=== PATIENT | female | born 1970 | race Caucasian/White ===

== ENCOUNTER 2018-10-20 02:03 | Emergency (ER) | payer BC ==
[~2018-10-20] VITALS: Ht 162.6 cm; Wt 59.1 kg
[2018-10-20 02:19] VITALS: BP 117/63; TEMP 98.3
[2018-10-20] MEDS ORDERED: ARMOUR THYROID30 MG PO (02:24)
[2018-10-20] MEDS ORDERED: PROMETRIUM100 MG PO (02:25)
[2018-10-20] MEDS ORDERED: ALDACTONE 25MG25 M1 PO (02:25)
[2018-10-20] MEDS ORDERED: ATARAX 25MG25 MG/TAB PO (02:41)
[2018-10-20] MEDS ORDERED: MEDROL 4MG DOSPA4 MG PO (02:41)
[2018-10-20 03:16] VITALS: PULSE 78
== END 2018-10-20 03:18 | disposition home or self-care (01) ==
LOC: COL.ER 02:03
DX: S80.862A Insect bite (nonvenomous), left lower leg, initial encounter (principal); S80.861A Insect bite (nonvenomous), right lower leg, initial encounter; W57.XXXA Bitten or stung by nonvenomous insect and other nonvenomous arthropods, initial encounter
CPT/HCPCS: J7509